=== PATIENT | female | born 1980 | race Caucasian/White ===

== ENCOUNTER 2024-10-30 17:01 | Emergency (ER) | payer OTHER, SELFPAY ==
[2024-10-30 17:23] VITALS: BP 136/88; PULSE 98; RESP 18; TEMP 37; O2SAT 96; BMI 35.3
--- NOTE | 2024-10-30 17:33 | ED_ITS ---
HPI - General Adult General Date Seen: 10/30/24 Chief complaint: Dental/Oral/Mouth Injury/Pain Stated complaint: lip problem Time Seen by Provider: 10/30/24 17:32 History of Present Illness HPI narrative: 44 yo F presents to the ER this afternoon at about 5:30 p.m. for evaluation of a laceration on her left lower lip. She suspects that the injury happened last night between midnight and 3:00 a.m. (up to 16 or 18 hours prior to arrival). She was drinking last night and can not remember exactly what happened. Patient has no previous records in the [facility] EMR. She does have some records in the [facility] EMR. She has a history of tobacco use, h yperhidrosis. She is on albuterol p.r.n.. She was drinking alcohol last I had him it is that she drank to excess. She believe she fell while she was highly intoxicated and hit her face on the floor at home. Her says that there was a fair amount of blood on the floor from her lip laceration. She does not exactly recall how the injury happened. She denies any concern for assault. She woke up this morning and thinks she landed on her left side could because her left arm is little bit sore. She was able to get up and start her shift at work today but because of the throbbing pain in her left lower lip, she left work early and came here to the ER. She has I will left lower lip laceration that involves the vermilion border and gapes about a quarter of an inch. She does not feel like her teeth are injured, fractured, or loose. Her tongue is normal. She has a central lower lip piercing that is not displaced and a tongue piercing that is not injured. She does have some pain in her left zygoma and left TMJ in feels like it hurts to open and close her mouth. She feels like her teeth line up okay. She has a mild headache. No ongoing nausea. Vision is normal. No neck pain. No numbness or tingling in arms or legs. She has a mild ache in her left shoulder but feels like it is moving normally and she is confident it is not broken. No other injuries from the fall. No chest pain. No abdominal pain. No back pain. Most recent tetanus was in [id number]. Related Data Home Medications ?Medication ?Instructions ?Recorded ?Confirmed albuterol sulfate 90 mcg/actuation 1 - 2 puff inhalation Q4H PRN 10/30/24 10/30/24 aerosol inhaler wheezing prednisone 20 mg tablet 40 mg PO DAILY 10/30/24 10/30/24 Allergies Allergy/AdvReac Type Severity Reaction Status Date / Time No Known Drug Allergies Allergy Verified 10/30/24 17:28 PFSH [facility] Social History Smoking Status: Current every day smoker Do you use any of these nicotine containing products: None How often do you have a drink containing alcohol: 2-3 times a week AUDIT-C Alcohol total score: 3 Non-prescribed substance use: denies use Exam Narrative: Exam Narrative: Primary Survey: A- patent. Speaking clearly. Phonation normal. No stridor. B- breathing easily. Lung sounds clear and equal. Oxygen saturation normal on room air C- no active bleeding. Blood pressure stable. Symmetric pulses and cap refill in 4 extremities. D- alert and oriented x3. GCS 15. No focal deficits. Constitutional: Appears well-developed and well-nourished. Alert. Conversant. Non toxic. HENT: Head: No depressed skull fracture, Raccoon Eyes, Santos's sign, or hemotympanum. Face normal. TMs normal. Nose: Nose normal. Mouth/Throat: Oral mucosa is clear and moist. Tongue normal. Piercing in place. No tongue laceration. Dentition and teeth are normal. no trismus but she does have left TMJ and left cheek pain when she opens and closes her jaw. Normal dental occlusion.. Pharynx normal. Tonsils symmetric. No tonsillar enlargement, erythema, or exudate. She has a fairly complex laceration involving the lower lip. It creates a gaping wound about 4-5 mm across. The external portion of laceration extends just below the vermilion border and then proximally up and over the top of the lip. The internal portion laceration is gaping into a Y-shaped laceration. No foreign body. This is not really a through and through laceration because it extends all way through the border of the lip. No active bleeding. A lot of dry scabs which were washed away during wound prep and irrigation. Eyes: Conjunctivae normal. EOM normal. Pupils equal, round, and reactive to light. No scleral icterus. Neck: No posterior midline tenderness or step-off. Normal range of motion. Neck supple. No tracheal deviation present. Cardiovascular: Normal rate, regular rhythm. No gallop. No friction rub. No murmur heard. Symmetric radial artery pulses Pulmonary/Chest: Effort normal. No stridor. No respiratory distress. No wheezes. No rales. No rhonchi . No tenderness. Abdominal: Soft. Bowel sounds normal. No distension. No mass. No tenderness. No rebound. No guarding. Musculoskeletal: No back tenderness of the T or L-spine. Pelvis stable. RUE: Normal range of motion. No tenderness. No deformity LUE: Normal range of motion. No tenderness. No deformity RLE: Normal range of motion. No edema. No tenderness. No deformity LLE: Normal range of motion. No edema. No tenderness. No deformity Neurological: Alert and oriented to person, place, and time. Normal strength. CN II-VII intact. No sensory deficit. GCS eye subscore is 4. GCS verbal subscore is 5. GCS motor subscore is 6. Normal coordination Skin: Skin is warm and dry. No rash noted. No pallor. Normal capillary refill. Psychiatric: Normal mood. Normal affect. Const: Vital Signs, click to edit/add: Vital Signs - 24 hr 10/30/24 17:23 10/30/24 19:11 Temperature 98.6 F Pulse Rate [Right Pulse Oximeter] 98 85 Respiratory Rate 18 16 Blood Pressure [Ri ght Upper Arm] 136/88 136/76 Pulse Oximetry 96 95 Oxygen Delivery Me thod Room Air Course Vital Signs Vital signs: Initial Vital Signs Temperature 98.6 F 10/30/24 17:23 Temperature Source Temporal Artery Scan 10/30/24 17:23 Pulse Rate 98 10/30/24 17:23 Pulse Rhythm Regular 10/30/24 17:23 Pulse Strength 3+ Normal 10/30/24 17:23 Respiratory Rate 18 10/30/24 17:23 Blood Pressure 136/88 10/30/24 17:23 Blood Pressure Mean 104 10/30/24 17:23 Blood Pressure Position Sitting 10/30/24 17:23 Pulse Oximetry 96 10/30/24 17:23 Oxygen Delivery Method Room Air 10/30/24 17:23 Vital Signs Temperature 98.6 F 10/30/24 17:23 Pulse Rate 98 10/30/24 17:23 Respiratory Rate 18 10/30/24 17:23 Blood Pressure 136/88 10/30/24 17:23 Pulse Oximetry 96 10/30/24 17:23 Oxygen Delivery Method Room Air 10/30/24 17:23 Temperature 98.6 F 10/30/24 17:23 Pulse Rate 85 10/30/24 19:11 Respiratory Rate 16 10/30/24 19:11 Blood Pressure 136/76 10/30/24 19:11 Pulse Oximetry 95 10/30/24 19:11 Oxygen Delivery Method Room Air 10/30/24 17:23 Medications Administered Medications: Discontinued Medications Generic Name Dose Route Start Last Admin Trade Name Freq PRN Reason Stop Dose Admin Lidocaine/Epinephrine 20 ml 10/30/24 18:15 10/30/24 18:30 Lidocaine 1%-Epi 1:100,000 INFILTRATI 10/30/24 18:16 20 ml ONCE ONE Administration Medical Decision Making MDM Narrative Medical decision making narrative: Findings and exam are consistent with an complex left lower lip laceration which was repaired as noted above. She has sustained the injury while intoxicated with alcohol last night during which she believes was a fall. She does have an associated left facial and left jaw pain as well as a mild headache. Given significant amnesia of the event, we did obtain head CT and facial CT. The patient is alert and oriented now and has no distracting injuries so I do think I can clear her cervical spine by nexus criteria. Fortunately facial and brain CT are normal. There is no evidence at this time to suggest any associated fracture or foreign body. There is no evidence to suggest intracranial injury and patient is neurologically in tact. The patient is to follow up for suture removal as instructed in 5-7 days if they don't dissolve and fall out on their own. Indications to seek urgent reevaluation and signs of infection (including but not limited to increasing pain, redness, swelling, fevers, and drainage) were reviewed. Tetanus is up-to-date. This is a clean and noncontaminated wound in which prophylactic antibiotics are not indicated. An understanding of the discharge instructions and need for follow up were verbally confirmed. Imaging Data CT facial bones: Attestation: I have reviewed the pertinent imaging results. Radiologist's impression: Impression: Left lower lip laceration suspected, no other acute abnormality appreciated. CT scan - head: Attestation: I have reviewed the pertinent imaging results. Radiologist's impression: Impression: No acute intracranial abnormality appreciated. Discharge Plan Discharge Clinical Impression: Complicated laceration of lip Patient Disposition: Home, Self-Care Condition: Stable Instructions: Dental Laceration (ED) Additional Instructions: As we discussed, please be very careful with the stitches on your lip. You have absorbable stitches in place on the skin in buried under the surface. The stitches are fragile so try to avoid chewing on your lip or eating any crunchy or hard foods. This stitches should dissolve and fall out over the next 5-10 days. If all of the visible stitches have not fallen out by next Thursday, please come back to the ER so they can be removed. You have deeper stitches buried underneath this skin of your lip that should dissolve over the next couple of months. Monitor the area for infection (redness, swelling, pus draining from the wound). If you have any concerns for infection, or if you have uncontrolled bleeding, worsening pain, or any problems, please return to the ER right away. Please start on the antibiotic tonight help prevent infections. Activity Level: No Restrictions Discharge Diet: Regular Prescriptions: No Action prednisone 20 mg tablet 40 mg PO DAILY albuterol sulfate 90 mcg/actuation HFA aerosol inhaler 1 - 2 puff INHALATION Q4H PRN (Reason: wheezing) Follow Up/Referrals: Ruth Card DO [Primary Care Provider] - Stand Alone Forms: [facility] Info Instructions Procedures Laceration Left lower lip laceration: Pre procedure diagnosis: Left lower lip laceration Verification/time out: correct patient and correct site Site: lip Side (If applicable): left Size (cm): 2 Description: stellate, irregular and involves kerry border Depth: involves muscle layer Local Anesthetic: lidocaine 1% and with epi Amount of anesthesia used (mL): 5 Pre-repair: wound explored, irrigated extensively and deep structures intact (Involves or be killers auris muscle. No foreign body.) Size (cm): 5-0 (Fast-absorbing gut) Number of sutures: 5 Technique: simple, interrupted Subcutaneous layer closed with: Vicryl Size: 4-0 Number of sutures: 4 Technique: other (Buried sutures)
--- OUTSIDE RECORDS SUMMARY | 2024-10-30 17:57 | XMS_ITS | Clinical Summary ---
Author Organization [facility] Address [facility] [place] [address] Care Team Providers Care Geography Instructor Name Role Phone DanaRuth benitez Estephanie PRICE Primary Care Provider Angel Cutler MD Unavailable [phone] Allergies No known active allergies Medications albuterol HFA 90 mcg/actuation inhalerIndicati ons:Viral bronchitis,Whee zing Inhale 1-2 Puffs by mouth every 4 hours if needed for Shortness Of Breath or Wheezing. 1 Each 5 Active inhalational spacing deviceIndicatio ns:Viral bronchitis,Whee zing For home use. 1 Each 5 Active predniSONE 20 mg tabletIndicatio ns:Viral bronchitis,Whee zing Take 2 Tablets (40 mg) by mouth once daily for 5 days. 10 Tablet 5 10/26/19 25 Active Problems Problem Noted Date Diagnosed Date Pap smear for cervical cancer screening 10/14/19 23 Overview (12/12/2022): 10/2022 NIL/HPV negative Plan: Pap/HPV due in 5 years Tobacco use 09/11/2017 Generalized hyperhidrosis Resolved Problems Problem Noted Date Diagnosed Date Resolved Date S/P laparoscopic appendectomy 11/05/2022 11/05/2022 11/05/2022 Supervision of other normal 01/03/2015 09/11/2017 Velamentous insertion of umbilical cord 09/21/2012 09/11/2017 Single umbilical artery 09/21/201208/15 Spontaneous vaginal delivery 09/21/2012 10/27/2012 Subchorionic hemorrhage 08/29/201210/13 Tobacco smoking complicating in second trimester 08/29/2012 09/11/2017 PROM (premature rupture of membranes) 08/28/2012 10/27/2012 Overview (08/28/2012): On 08/28/2012 at 07:30 Supervision of other normal 05/22/2012 10/01/2012 Overview (08/20/2012): subchorionic hematoma with persistant bleeding. Seeing Dr. Cutler 3.15. 13. Ruth Card D.O. 08/20/2012 1:19 PM Infective otitis externa, unspecified 03/05/2009 05/22/2012 Polyhydramnios 10/27/2008 01/23/2009 , supervision of, high-risk 09/20/2008 01/23/2009 PIH ( induced hyper tension), antepartum 09/18/2008 10/27/2008 Encounters Date Type Department Care Team Description 10/28/2024 8:30 AM CDT - 10/28/2024 11:59 PM T Hospital Encounter [facility] [address] [address] Nora Kelsey DO Burns, Kayla A, OT 10/28/2024 Travel 10/20/2024 9:10 AM CDT Office Visit [facility] [address] [place] [address] Elizabeth Bhatti MD Cough (Chest congestion ) 10/19/2024 Travel 10/07/2024 8:34 AM CDT - 10/07/2024 11:59 PM [facility] [address] [place] [address] Nora Kelsey DO Burns, Kayla A, OT 10/07/2024 Travel 09/23/2024 1:24 PM CDT - 09/23/2024 11:59 PM CDT [facility] [address] [address] Nora Kelsey DO BurnsGracieabimael Jimenez OT Lateral epicondylitis of left elbow 09/23/2024 Travel 09/15/2024 2:55 PM CDT Office Visit [facility] [address] [place] [address] Nora Kelsey DO Elbow Pain/problem (LEFT side - since May 2024 - repetitive use at work - ice, rest, heat, compression sleeve, tylenol/ibu - nothing seems to help / getting progressively worse ) 09/15/2024 Travel from Last 3 Months Immunizations Immunization Administration Dates Next Due AMB Influenza, IIV3 (Age >=3 years)(Flu Clinic Only) 05/16/2011 COVID-19 vaccine (Moderna 100mcg/0.5mL) PF, MDV 09/23/2020,08/26/2020 DTP 10/08/1987, 5,1982,1982,1982 Hepatitis B (Peds) 05/15/1999,04/12/1999 Human Papilloma Virus Vaccine 03/31/2006 INFLUENZA, IIV3 PF (AGE >= 6 MO) 04/07/2024 Influenza A (H1N1), Inactiva ashley (Age >=3 Years) 05/28/2009 Influenza, IIV3 (Age >=3 years) 04/23/20 12,05/21/2010,04/03/2008,2005 Influenza, IIV4 02/26/2023, 2,04/11/2021,2019,04/09/2018,07/01/2017,02/27/2016,1 06/18/2014,03/14/2014,06/24/2013 Influenza, IIV4 (=>6mos) MDV 03/11/2019 MMR 09/09/2006 Oral Polio Vaccine 03/18/1988, 5,09/19/1983,1982,1982 Td (Age >=7 Years) 04/01/1995 Tdap 07/30/2016, 5,09/21/2012,2005 Family History Medical History Relation Name Comments Diabetes Maternal Aunt Cancer-colon Maternal Grandfather Stroke Maternal Grandfather Good Health Mother Other Other MAunt with M.S. Cancer-breast No Family History Cancer-ovarian No Family History Relation Name Status Comments Maternal Aunt Maternal Grandfather Mother Other Social History Tobacco Use Types Packs/Day Years Used Date Smoking Tobacco: Every Day Cigarettes Smokeless Tobacco: Never Tobacco Cessation:Ready to Q uit: No; Counseling Given: Yes Alcohol Use Standard Drinks/Week Comments Yes 2 (1 standard drink = 0.6 oz pur e alcohol) PHQ-2 Answer Date Recorded PHQ-2 TOTAL SCORE 2 11/05/2022 Social Connections Answer Date Recorded Do you often feel lonely or isolated from those around you? 0 05/09/2024 Financial Resource Strain Answer Date R ecorded Difficulty of Paying Living Expenses 3 05/09/2024 Difficulty of Paying Living Expenses Not on file 05/09/2024 Food Insecurity Answer Date Recorded Do you worry your food will run out before you are able to buy more? 1 05/09/2024 Transportation Needs Answer Date Record ed Does lack of transportation keep you from medica l appointments? 1 05/09/2024 Does lack of transportation keep you from work, meetings or getting things that you need? 1 05/09/2024 Housing Stability Answer Date Recorded What is your housing situation today? 1 05/09/2024 Utilities Answer Date Recorded Do you have trouble paying f or utilities (for example, heat, electricity, water, phone)? 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 Gender Identity Not on file Sexual Orientation Not on file Obstetrics History Para Term AB IAB SAB Ectopic Multiple Livin g Live Births 5 4 2 2 1 0 1 0 0 3 1 Date Outcome GA Total Labor Labor/2nd/3rd Weight Sex Type Anes PTL Elza A1 A5 Name Clin SAB 2008 Term 38w 0d 3.29 kg (7 lb 4 oz) F Vag Livin g 6 8 Cyrus Deter t Delivery Location:[place] 2012 27w 6d 1.21 kg (2 lb 10.7 oz) M Vag Epidur al Y Neona chaitanya Demis e 8 9 Matthew healy Complications:Cerebral hemor rhage (HC) Delivery Location:[facility] Comments:pPROM 08/28/12 , chorio 2014 35w 5d 2.41 kg (5 lb 5 oz) M Vag Y Livin g Quince y 2016 Term 37w 2d 3.4 kg (7 lb 8 oz) F Vag N Livin g Complications:None Last Filed Vital Signs Vital Sign Reading Time Taken Comments Blood Pressure 122/83 10/20/2024 9:09 AM CDT Pulse 77 10/20/2024 9:09 AM CDT Temperature 37.2 C (98.9 F) 10/20/2024 9:09 AM CDT Respiratory Rate 18 01/28/2016 3:30 PM CDT Oxygen Saturation 96% 10/20/2024 9:09 AM CDT Inhaled Oxygen Concentration - - Weight 95.3 kg (210 lb 3.2 oz) 10/20/2024 9:09 A M CDT Height 166.4 cm (5' 5.5) 11/05/2022 9:31 AM CDT Body Mass Index 34.45 11/05/2022 9:31 AM CDT Plan of Treatment Upcoming Encounters Date Type Department Care Team (Late st Contact Info) Description 11/04/2024 8:45 AM CDT Appointment [facility] [address] [place] [address] Linda Murray, OT [address] [place] [address] 11/09/2024 3:15 PM CDT Appointment [facility] [address] [place] [address] Elsie Dye, OT [address] [place] [id number] 11/10/2024 8:40 AM CDT Office Visit [facility] [address] [place] [address] Owen Augustin MD [address] [place] [address] 11/17/2024 12:15 PM CDT Appointment [facility] [address] [facility] [place] [address] Linda Murray OT [address] [facility] [place] [address] Health Maintenance Due Date Last Done Comments Depression screening for age 12+ 1994 BMI (ht and wt on same day) for age 18+ 11/06/2023 11/05/2022, 05/02/2020, 09/11/2017, Additional history exists Tetanus booster 07/30/2026 07/30/2016, 09/2014, 09/21/2012, Additional history exists Pap test for age 21-65 11/06/2027 , 11/05/2022, 11/27/2014, Additional history exists Pneumococcal series for age 6-49 (1 of 2 - PCV) 11/01/2029 Postponed from 2001 (Provider discretion) HIV for age 15-65 Completed 02/27/2016, , 04/27/2012, Additional history exists Hepatitis C screening for age 18-79 Completed 02/27/2016, 11/10/2014, 04/27/2012 Tdap Completed 07/30/2016, 09/2014, 09/21/2012, Additional history exists COVID-19 vaccine series Completed 04/07/20, 03/16/2023, 03/20/2022, Additional history exists Influenza Vaccine Completed 04/07/2024, , 03/20/2022, Additional history exists Procedures Procedure Name Priority Date/Time Associated Diagnosis Comments HPV HIGH RISK Routine 11/05/2022 9:50 AM CDT Screening for cervical cancer ANTI HIV 1/2 Routine 02/27/2016 10:22 AM CDT Less than 8 weeks gestation of (HC) ANTI HCV Routine 02/27/2016 10:22 AM CDT Less than 8 weeks gestation of (HC) from Last 3 Months or Most Recently Relevant to Health Maintenance Results * HPV HIGH RISK (11/05/2022 9:50 AM CDT) TYPE 16 Negative Negative 11/11/2022 1:44 PM CDT [facility] TYPE 18 Negative Negative 11/11/2022 1:44 PM CDT [facility] OTHER HIGH RISK TYPES Negative Negative 11/11/2022 1:44 PM CDT [facility] Other (Cervical) Non-Blood / Unknown 11/05/2022 9:50 AM CDT 11/06/2022 2:56 PM CDT [facility] - 11/11/2022 1:44 PM CDT HPV types 16, 18, 31, 33, 35, 39, 45, 51, 52, 56, 58, 59, 66 and 68 DNA were undetectable or below the pre-set threshold. Methodology: Sherie Atilio 4800 HPV Test Ruth Card DO MICROBIOLOGY Final Resul t [facility] [address] [place] [address], * ANTI HCV (02/27/2016 10:22 AM CDT) HEPATITIS C ANTIBODY Non-Reacti ve Non-Reacti ve 02/27/2016 5:57 PM CDT [facility] Blood BLOOD SPECIMEN / Unknown Venipuncture / Unknown 02/27/2016 10:22 AM CDT 02/27/2016 10:22 AM CDT Narrative [facility] - 02/27/2016 5:57 PM CDT Antibodies to HCV not detected; does not exclude the possibility of exposure to HCV. Layla MILES SEND OUTS Final R esult [facility] [address] [place] [address], [place] * ANTI HIV 1/2 (02/27/2016 10:22 AM CDT) HIV-1/HIV-2 ANTIBODY Non-Reacti ve Non-Reacti ve 02/27/2016 5:55 PM CDT [facility] Blood BLOOD SPECIMEN / Unknown Venipuncture / Unknown 02/27/2016 10:22 AM CDT 02/27/2016 10:22 AM CDT Narrative [facility] - 02/27/2016 5:55 PM CDT HIV-1 p24 and HIV-1/HIV-2 Ab not detected Layla MILES S[employer] Final R esult [facility] [address] [place] [address], [place] from Last 3 Months or Most Recently Relevant to Health Maintenance Insurance [facility] [employer] WORKERS COMP [address] [place] [address] WC WORKERS COMP [employer] WORK[employer] COMP Advance Directives * Full Code (Latest Code Status on File) Date Activated Date Inactivated Comments 08/28/2012 1:41 PM 09/22/2012 7:03 PM Care Teams Geography Instructor Relationship Specialty Start Date End Date Ruth Card DO [address] [place] [address] PCP - General 04/06/08 Angel Cutler MD [address] [place] [address] Perinatology NUCLEAR OPERATOR Perinatology 08/12/12
[2024-10-30] MEDS: LIDOCAINE 1%-EPI 1:100,000 20 ML INFILTRATI (18:30)
--- NOTE | 2024-10-30 18:40 | CRLHL7_ITS ---
For Patients: As a result of the Century Cures Act, medical imaging exams and procedure reports are released immediately into your electronic medical record. You may view this report before your referring provider. If you have questions, please contact your health care provider. Indication: Head and facial trauma, amnesia Technique: Noncontrast CT through the head with multiplanar reformats Comparison: None Findings: Brain: No acute hemorrhage. No acute infarct. No significant mass effect or midline shift. No gross evidence of a mass lesion or cerebral edema. Ventricles: No acute abnormality appreciated. Calvarium and scalp: No acute abnormality appreciated. Impression: No acute intracranial abnormality appreciated. Please note that all CT scans at this facility use dose modulation, iterative reconstruction, and/or weight-based dosing when appropriate to reduce radiation dose to as low as reasonably achievable. Dictated by Robin Nash MD @ 10/30/2024 7:45:47 PM (Electronically Signed)
--- NOTE | 2024-10-30 18:40 | CRLHL7_ITS ---
For Patients: As a result of the Cures Act, medical imaging exams and procedure reports are released immediately into your electronic medical record. You may view this report before your referring provider. If you have questions, please contact your health care provider. Indication: Head and facial trauma, amnesia, left TMJ and cheek pain, lip laceration Technique: CT through the maxillofacial structures with multiplanar reformats without contrast Comparison: None Findings: Orbits: Periorbital tissues are unremarkable. Intraorbital tissues are unremarkable. No orbital fracture appreciated. Paranasal sinuses: No acute abnormality appreciated. Sinus mucosal thickening without air-fluid levels. Mastoid air cells: No significant abnormality appreciated. Maxilla: No acute fracture. Mandible: No acute fracture. Zygomatic arch, squamous temporal bone, and pterygoid plates: No acute fracture. Nasal bones: No acute fracture. Visualized cervical spine: No acute abnormality appreciated. Other: Left lower lip laceration suspected. Impression: Left lower lip laceration suspected, no other acute abnormality appreciated. Please note that all CT scans at this facility use dose modulation, iterative reconstruction, and/or weight-based dosing when appropriate to reduce radiation dose to as low as reasonably achievable. Dictated by Robin Nash MD @ 10/30/2024 7:47:21 PM (Electronically Signed)
--- OUTSIDE RECORDS SUMMARY | 2024-10-30 18:50 | XMS_ITS | Clinical Summary ---
Author Organization [facility] Address [facility] [place] [address] Care Team Providers Care Hospice Art Therapist Name Role Phone DanaRuth benitez Estephanie PRICE Primary Care Provider Angel Cutler MD Unavailable [phone] Allergies No known active allergies Medications albuterol [...] 10/28/2024 11:59 PM T Hospital Encounter [facility] [address] [address] Nora Kelsey DO Burns, Kayla A, OT 10/28/2024 Travel 10/20/2024 9:10 AM CDT Office Visit [facility] [address] [place] [address] Elizabeth Bhatti MD Cough (Chest congestion ) 10/19/2024 Travel 10/07/2024 8:34 AM CDT - 10/07/2024 11:59 PM T [facility] [address] [place] [address] Nora Kelsey DO Burns, Kayla A, OT 10/07/2024 Travel 09/23/2024 1:24 PM CDT - 09/23/2024 11:59 PM CDT Hospital [facility] [address] [address] Nora Kelsey DO BurnsGracieabimael Jimenez OT Lateral epicondylitis of left elbow 09/23/2024 Travel 09/15/2024 2:55 PM CDT Office Visit [facility] [address] 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 Gender Identity Not on file Sexual Orientation [...] g 6 8 Cyrus Deter t Delivery Location:[place] 2012 27w 6d 1.21 kg (2 lb 10.7 oz) M Vag Epidur al Y Neona chaitanya Demis e 8 9 Matthwe healy Complications:Cerebral hemor rhage (HC) Delivery Location:[facility] Comments:pPROM 08/28/12 , chorio 2014 35w 5d [...] Info) Description 11/04/2024 8:45 AM CDT Appointment [facility] [address] [place] [address] Linda Murray, OT [address] [place] [address] 11/09/2024 3:15 PM CDT Appointment [facility] [address] [place] [address] Elsie Dye, OT [address] [place] [address] 11/10/2024 8:40 AM CDT Office Visit [facility] [address] [place] [address] Owen Augustin MD [address] [place] [address] 11/17/2024 12:15 PM CDT Appointment [facility] [place] [address] [facility] [place] [address] Linda Murray OT [address] [facility] [place] [address] Health Maintenance Due Date Last Done Comments [...] 16 Negative Negative 11/11/2022 1:44 PM CDT [facility] TYPE 18 Negative Negative 11/11/2022 1:44 PM CDT [facility] OTHER HIGH RISK TYPES Negative Negative 11/11/2022 1:44 PM CDT [facility] Other (Cervical) Non-Blood / Unknown 11/05/2022 9:50 AM CDT 11/06/2022 2:[address] [facility] - 11/11/2022 1:44 PM CDT HPV types 16, 18, 31, 33, 35, 39, 45, 51, 52, 56, 58, 59, 66 and 68 DNA were undetectable or below the pre-set threshold. Methodology: Sherie Atilio 4800 HPV Test Ruth Card DO MICROBIOLOGY Final Resul t [facility] [address] [place] [address], * ANTI HCV (02/27/2016 10:22 AM CDT) HEPATITIS C ANTIBODY Non-Reacti ve Non-Reacti ve 02/27/2016 5:57 PM CDT [facility] Blood BLOOD SPECIMEN / Unknown Venipuncture / Unknown 02/27/2016 10:22 AM CDT 02/27/2016 10:22 AM CDT Narrative [facility] - 02/27/2016 5:57 PM CDT Antibodies to HCV not detected; does not exclude the possibility of exposure to HCV. Layla MILES SEND OUTS Final R esult [facility] [address] [place] [address], [place] * ANTI HIV 1/2 (02/27/2016 10:22 AM CDT) HIV-1/HIV-2 ANTIBODY Non-Reacti ve Non-Reacti ve 02/27/2016 5:55 PM CDT [facility] Blood BLOOD SPECIMEN / Unknown Venipuncture / Unknown 02/27/2016 10:22 AM CDT 02/27/2016 10:22 AM CDT Narrative [facility] - 02/27/2016 5:55 PM CDT HIV-1 p24 and HIV-1/HIV-2 Ab not detected Layla MILES SEND OUTS Final R esult [facility] [address] [place] [address], [place] from Last 3 Months or Most Recently Relevant to Health Maintenance Insurance [facility] [place] [address] [id number] [place] [address] [employer] WORK[employer] WORK[employer] Advance Directives * Full Code (Latest Code Status on File) Date Activated Date Inactivated Comments 08/28/2012 1:41 PM 09/22/2012 7:03 PM Care Teams Hospice Art Therapist Relationship Specialty Start Date End Date Ruth Card DO [address] [place] [address] PCP - General 04/06/08 Angel Cutler MD [address] [place] [address] Perinatology CERTIFIED DENTAL ASSISTANT Perinatology 08/12/12
[2024-10-30 19:11] VITALS: BP 136/76; PULSE 85; RESP 16; O2SAT 95
== END 2024-10-30 20:37 | disposition home or self-care (01) ==
PROVIDERS: Emergency Provider Emergency Medicine; PCP Family Medicine
DX: S01.511A Laceration without foreign body of lip, initial encounter (principal); S09.12XA Laceration of muscle and tendon of head, initial encounter; X58.XXXA Exposure to other specified factors, initial encounter
CPT/HCPCS: 12051; 70450; 70486; 99283; 99284